=== PATIENT | female | born 1980 | race Caucasian/White ===

== ENCOUNTER 2016-11-21 21:26 | Emergency (ER) | payer SELFPAY ==
[2016-11-21 21:46] VITALS: BP 127/65
[2016-11-21] MEDS ORDERED: FENTANYL PF 100 MCG/2 ML VIAL. IV ONE (22:15)
[2016-11-21 22:23] LABS: BASO % 0 % (0-3); EOS % 3 % (0-3); HEMATOCRIT 38.8 % (36.0-47.0); HEMOGLOBIN 13.1 g/dL (12.0-15.5); LYMPH # 3.2 x10^3/uL (1.0-4.8); LYMPH % 30 % (24-48); MEAN CORPUSCULAR HEMOGLOBIN 30 pg (25-35); MEAN CORPUSCULAR HGB CONC 34 g/dL (31-37); MEAN CORPUSCULAR VOLUME 87 fL (79-100); MONO % 5 % (0-9); NEUT % 62 % (31-73); PLATELET COUNT 171 x10^3/uL (140-400); RED BLOOD COUNT 4.46 x10^6/uL (3.50-5.40); RED CELL DISTRIBUTION WIDTH 13.2 % (11.5-14.5); WHITE BLOOD COUNT 10.5 x10^3/uL (4.0-11.0)
--- NOTE | 2016-11-21 22:25 | PHYS DOC ---
Past Medical History Past Medical History: No Pertinent History Past Surgical History: Knee Replacement Additional Past Surgical Histo: BREAST AUGMENTATION Alcohol Use: Occasionally Drug Use: None Adult General Chief Complaint Chief Complaint: ABDOMINAL PAIN HPI HPI 36-year-old female who states she's having significant generalized abdominal pain that she noted after having a bowel movement earlier this morning. Patient to follow-up in the walk-in clinic and had a abdominal series and pelvic ultrasound that were essentially negative other than some mild free fluid. She was told she may have had a ruptured ovarian cyst. She is still concerned that she is having generalized abdominal pain that she rates a 5 out of 10. She is unable to really localize any of her symptoms. She denies any vaginal bleeding or discharge. She states she has not been sexually active for the last 4 months. She states she had urine and blood work that were negative earlier today at the walk-in clinic. She denies any history of health problems. She does not take any medications. She denies any nausea or vomiting. Review of Systems Review of Systems Constitutional: Denies fever or chills [] Eyes: Denies change in visual acuity, redness, or eye pain [] HENT: Denies nasal congestion or sore throat [] Respiratory: Denies cough or shortness of breath [] Cardiovascular: No additional information not addressed in HPI [] GI: Has abdominal pain, denies nausea, denies vomiting, denies bloody stools or diarrhea [] : Denies dysuria or hematuria [] Musculoskeletal: Denies back pain or joint pain [] Integument: Denies rash or skin lesions [] Neurologic: Denies headache, focal weakness or sensory changes [] Endocrine: Denies polyuria or polydipsia [] Current Medications Current Medications Current Medications Medications (Trade) Dose Ordered Sig/[facility] Start Time Stop Time Status Last Admin Dose Admin Fentanyl Citrate (Fentanyl 2ml Vial) 50 mcg 1X ONCE 11/21/16 22:15 11/21/16 22:39 DC Info (Do NOT chart on this entry -- for MONITORING) 1 each PRN DAILY PRN 11/21/16 23:00 11/22/16 01:11 DC Iohexol (Omnipaque 300 Mg/ml) 75 ml 1X ONCE 11/21/16 23:00 11/21/16 23:01 DC 11/21/16 23:12 75 ML Ketorolac Tromethamine (Toradol) 30 mg 1X ONCE 11/21/16 22:45 11/21/16 22:46 DC 11/21/16 22:46 30 MG Allergies Allergies Allergies Coded Allergies Type Severity Reaction Last Updated Verified Penicillins Allergy Intermediate HIVES 11/21/16 Yes amoxicillin Allergy Intermediate HIVES 11/21/16 Yes Physical Exam Physical Exam Constitutional: Well developed, well nourished, no acute distress, non-toxic appearance. [] HENT: Normocephalic, atraumatic, bilateral external ears normal, oropharynx moist, no oral exudates, nose normal. [] Eyes: PERRLA, EOMI, conjunctiva normal, no discharge. [] Neck: Normal range of motion, no tenderness, supple, no stridor. [] Cardiovascular:Heart rate regular rhythm, no murmur [] Lungs & Thorax: Bilateral breath sounds clear to auscultation [] Abdomen: Bowel sounds normal, soft, moderate generalized tenderness, no masses, no pulsatile masses. [] Skin: Warm, dry, no erythema, no rash. [] Back: No tenderness, no CVA tenderness. [] Extremities: No tenderness, no cyanosis, no clubbing, ROM intact, no edema. [] Neurologic: Alert and oriented X 3, normal motor function, normal sensory function, no focal deficits noted. [] Psychologic: Affect normal, judgement normal, mood normal. [] Current Patient Data Vital Signs Vital Signs Date Time Temp Pulse Resp B/P Pulse Ox O2 Delivery O2 Flow Rate FiO2 11/21/16 21:46 98.1 54 18 127/65 98 Room Air 98.1 Lab Values Laboratory Tests Test 11/21/16 21:29 11/21/16 22:10 POC Urine HCG, Qualitative Hcg negative (Negative) White Blood Count 10.5x10^3/uL (4.0-11.0) Red Blood Count 4.46x10^6/uL (3.50-5.40) Hemoglobin 13.1g/dL (12.0-15.5) Hematocrit 38.8% (36.0-47.0) Mean Corpuscular Volume 87fL (79-100) Mean Corpuscular Hemoglobin 30pg (25-35) Mean Corpuscular Hemoglobin Concent 34g/dL (31-37) Red Cell Distribution Width 13.2% (11.5-14.5) Platelet Count 171x10^3/uL (140-400) Neutrophils (%) (Auto) 62% (31-73) Lymphocytes (%) (Auto) 30% (24-48) Monocytes (%) (Auto) 5% (0-9) Eosinophils (%) (Auto) 3% (0-3) Basophils (%) (Auto) 0% (0-3) Neutrophils # (Auto) 6.5x10^3uL (1.8-7.7) Lymphocytes # (Auto) 3.2x10^3/uL (1.0-4.8) Monocytes # (Auto) 0.5x10^3/uL (0.0-1.1) Eosinophils # (Auto) 0.3x10^3/uL (0.0-0.7) Basophils # (Auto) 0.0x10^3/uL (0.0-0.2) Urine Collection Type Unknown Urine Color Yellow Urine Clarity Clear Urine pH 5.5 Urine Specific [place] 1.015 Urine Protein Negativemg/dL (NEG-TRACE) Urine Glucose (UA) Negativemg/dL (NEG) Urine Ketones (Stick) Negativemg/dL (NEG) Urine Blood Negative (NEG) Urine Nitrite Negative (NEG) Urine Bilirubin Negative (NEG) Urine Urobilinogen Dipstick 0.2mg/dL (0.2 mg/dL) Urine Leukocyte Esterase Negative (NEG) Urine RBC 0/HPF (0-2) Urine WBC 1-4/HPF (0-4) Urine Squamous Epithelial Cells Mod/LPF Urine Bacteria Moderate/HPF (0-FEW) Urine Mucus Mod/LPF Sodium Level 140mmol/L (136-145) Potassium Level 3.2mmol/L (3.5-5.1) L Chloride Level 102mmol/L (98-107) Carbon Dioxide Level 31mmol/L (21-32) Anion Gap 7 (6-14) Blood Urea Nitrogen 17mg/dL (7-20) Creatinine 0.9mg/dL (0.6-1.0) Estimated GFR (Cockcroft-Gault) 70.5 Glucose Level 107mg/dL (70-99) H Calcium Level 8.9mg/dL (8.5-10.1) Total Bilirubin 0.4mg/dL (0.2-1.0) Direct Bilirubin 0.1mg/dL (0.0-0.2) Aspartate Amino Transferase (AST) 16U/L (15-37) Alanine Aminotransferase (ALT) 14U/L (14-59) Alkaline Phosphatase 48U/L (46-116) Total Protein 7.5g/dL (6.4-8.2) Albumin 3.6g/dL (3.4-5.0) Lipase 166U/L (73-393) Laboratory Tests 11/21/16 22:10 Laboratory Tests 11/21/16 22:10 EKG EKG [] Radiology/Procedures Radiology/Procedures PROCEDURE Abdomen and pelvis CT with intravenous contrast. HISTORY Pain. Suspected ruptured ovarian cyst. TECHNIQUE Computed tomographic images of the abdomen and pelvis were obtained following the administration of 75 cc Omnipaque 300 intravenous contrast. One or more of the following individualized dose reduction techniques were utilized for this examination: 1. Automated exposure control; 2. Adjustment of the mA and/or kV according to patient size; 3. Use of iterative reconstruction technique. COMPARISON None. FINDINGS Evaluation of the lower thorax is unremarkable. There are implanted breast prostheses. No focal hepatic lesion is seen. There is slight fatty infiltration along the gallbladder fossa. The gallbladder is contracted. The pancreas, spleen and adrenal glands are unremarkable. The kidneys are unremarkable. No abnormally thickened or dilated loop of bowel is seen. There is no lymphadenopathy. There is a retroverted uterus. There prominent enhancing adnexal vessels. The ovaries are not well characterized given multiple adjacent small bowel loops. There is a tiny amount of pelvic free fluid. There is no suspicious osseous lesion. IMPRESSION 1. Suboptimal evaluation of the ovaries due to adjacent bowel loops. There prominent enhancing vessels within the adnexal regions, not within limits to suggest pelvic congestion. There is also trace free fluid, within physiologic limits for a premenopausal female. Note is made that transvaginal pelvic sonography is more sensitive for ovarian pathology. 2. Otherwise, unremarkable abdomen and pelvis CT. Electronically signed by: Colleen Linares (Nov 21, 2016 23:25:05) Ultrasound pelvis with transvaginal Indication: Pelvic pain Transabdominal andl transvaginal pelvic sonography was performed. The uterus is retroverted measuring 11.4 x 7.3 x 5.5 centimeter. Endometrium is 8 millimeters in thickness. There are cervical nabothian cysts present. The right ovary measures 3.4 x 2.4 x 2.0 centimeters and the left ovary measures 3.2 x 2.8 x 2.0 centimeters. There is blood flow to both ovaries. Left ovary does contain a 1.3 centimeter hypo echogenicity suggestive of a small complex cyst. Minimal free fluid is present. No other adnexal mass is seen. Impression: Essentially unremarkable pelvic ultrasound. Course & Med Decision Making Course & Med Decision Making Pertinent Labs and Imaging studies reviewed. (See chart for details) 36-year-old female who is otherwise healthy is having persisting generalized abdominal pain after having a bowel movement earlier today. Patient does not appear to be in any distress whatsoever and is afebrile upon arrival. I will obtain a laboratory workup including a CT of her abdomen and pelvis to isolate an acute cause for her symptoms. If her CT is negative she'll likely be discharged with close follow-up as she had an extensive workup earlier today that was negative. CT of her abdomen and pelvis shows suboptimal evaluation and ovaries due to adjacent bowel loops. There is some prominent enhancement in the vessels in the adnexa which suggests pelvic congestion. I discussed these findings with the radiologist who recommended a repeat transvaginal sonography be done to rule out ovarian pathology. I discussed the need to do this with the patient who is agreeable. The pelvic ultrasound is essentially unremarkable. It did show a mild left ovarian cyst that could be related to her symptoms. Her symptoms were well controlled with Toradol. Her laboratory workup was negative. Upon my reassessment, the patient states her pain is well-controlled and she is agreeable to go home with close follow-up with a leguillon debeader. Yenifer Disclaimer Dragon Disclaimer This electronic medical record was generated, in whole or in part, using a voice recognition dictation system. Departure Departure Impression: Primary Impression: Lower abdominal pain Disposition: HOME, SELF-CARE Admitting Physician: Other Condition: IMPROVED Referrals: UNKNOWN PCP NAME (PCP) Patient Instructions: Pelvic Pain, Female, [id number] Additional Instructions: Please follow up closely with your leguillon debeader in the next 2-3 days for your symptoms. Return to the ER if you develop any worsening of your symptoms. Take tylenol or motrin for your symptoms. MARC CUNHA DO Nov 21, 2016 22:25
[2016-11-21 22:31] LABS: BACTERIA,URINE MODERATE /HPF (0-FEW); BILIRUBIN,URINE NEGATIVE (NEG); GLUCOSE,URINE NEGATIVE (NEG); NITRITE,URINE NEGATIVE (NEG); PH,URINE 5.5; PROTEIN,URINE NEGATIVE (NEG-TRACE); RBC,URINE 0 /HPF (0-2); SQUAMOUS EPITHELIAL CELL,UR MOD /LPF; UROBILINOGEN,URINE 0.2 mg/dL (0.2 mg/dL)
[2016-11-21 22:34] LABS: CALCIUM 8.9 mg/dL (8.5-10.1); CREATININE 0.9 mg/dL (0.6-1.0); GFR 70.5; POTASSIUM 3.2 mmol/L (3.5-5.1)
[2016-11-21 22:39] LABS: ALBUMIN 3.6 g/dL (3.4-5.0); DIRECT BILIRUBIN 0.1 mg/dL (0.0-0.2); TOTAL BILIRUBIN 0.4 mg/dL (0.2-1.0); TOTAL PROTEIN 7.5 g/dL (6.4-8.2)
[2016-11-21] MEDS ORDERED: KETOROLAC TROMETHAMINE 30 MG/ML INJ. IV ONE (22:45)
[2016-11-21] MEDS ORDERED: CONTRAST GIVEN MC PRN (23:00)
[2016-11-21] MEDS ORDERED: IOHEXOL 300 MG/ML 75 ML VIAL IV ONE (23:00)
--- NOTE | 2016-11-21 23:26 | RAD ---
PROCEDURE Abdomen and pelvis CT with intravenous contrast. HISTORY Pain. Suspected ruptured ovarian cyst. TECHNIQUE Computed tomographic images of the abdomen and pelvis were obtained following the administration of 75 cc Omnipaque 300 intravenous contrast. One or more of the following individualized dose reduction techniques were utilized for this examination: 1. Automated exposure control; 2. Adjustment of the mA and/or kV according to patient size; 3. Use of iterative reconstruction technique. COMPARISON None. FINDINGS Evaluation of the lower thorax is unremarkable. There are implanted breast prostheses. No focal hepatic lesion is seen. There is slight fatty infiltration along the gallbladder fossa. The gallbladder is contracted. The pancreas, spleen and adrenal glands are unremarkable. The kidneys are unremarkable. No abnormally thickened or dilated loop of bowel is seen. There is no lymphadenopathy. There is a retroverted uterus. There prominent enhancing adnexal vessels. The ovaries are not well characterized given multiple adjacent small bowel loops. There is a tiny amount of pelvic free fluid. There is no suspicious osseous lesion. IMPRESSION 1. Suboptimal evaluation of the ovaries due to adjacent bowel loops. There prominent enhancing vessels within the adnexal regions, not within limits to suggest pelvic congestion. There is also trace free fluid, within physiologic limits for a premenopausal female. Note is made that transvaginal pelvic sonography is more sensitive for ovarian pathology. 2. Otherwise, unremarkable abdomen and pelvis CT. Electronically signed by: Colleen Linares (Nov 21, 2016 23:25:05)
--- NOTE | 2016-11-22 00:39 | RAD ---
Ultrasound pelvis with transvaginal Indication: Pelvic pain Transabdominal andl transvaginal pelvic sonography was performed. The uterus is retroverted measuring 11.4 x 7.3 x 5.5 centimeter. Endometrium is 8 millimeters in thickness. There are cervical nabothian cysts present. The right ovary measures 3.4 x 2.4 x 2.0 centimeters and the left ovary measures 3.2 x 2.8 x 2.0 centimeters. There is blood flow to both ovaries. Left ovary does contain a 1.3 centimeter hypo echogenicity suggestive of a small complex cyst. Minimal free fluid is present. No other adnexal mass is seen. Impression: Essentially unremarkable pelvic ultrasound. Electronically signed by: Darren Boyer MD (Nov 22, 2016 00:37:33)
== END 2016-11-22 01:08 | disposition home or self-care (01) ==
LOC: ER 21:26
DX: R10.30 Lower abdominal pain, unspecified (principal); R10.84 Generalized abdominal pain; Z96.659 Presence of unspecified artificial knee joint; Z88.0 Allergy status to penicillin; Z88.1 Allergy status to other antibiotic agents
CPT/HCPCS: 36415; 74177; 76830; 76856; 80048; 80076; 81001; 81025; 83690; 85027; 87086; 96374; 99285; J1885; Q9967